=== PATIENT | male | born 1955 | race Caucasian/White ===

== ENCOUNTER → 2016-12-30 | Outpatient (CLI) | payer OTHER ==
[~2016-12-30] MED LIST: ALPR-475 PO; HYDR-3240 PO; IBUP-1222 PO; TAMS0.4C2 PO
== END | disposition home or self-care (01) ==
LOC: RAD 14:45
PROVIDERS: ATTEND Internal Medicine
DX: R91.8 Other nonspecific abnormal finding of lung field (principal); J44.9 Chronic obstructive pulmonary disease, unspecified
CPT/HCPCS: 71250

== ENCOUNTER 2017-01-10 07:47 | Day surgery (SDC) | payer OTHER ==
[~2017-01-10] VITALS: Ht 175.3 cm; Wt 59.6 kg
[2017-01-10 08:34] VITALS: BP 103/74
[2017-01-10] MEDS ORDERED: ACET-1600 PO (08:45)
[2017-01-10] MEDS ORDERED: TRAM50TA2 PO (08:45)
[2017-01-10] MEDS ORDERED: FLUT1AER NAS (08:45)
[2017-01-10] MEDS ORDERED: LACTATED RINGERS 1,000 ML IV SCH (08:47)
[2017-01-10] MEDS ORDERED: LIDOCAINE 1%, 2ML ONE (08:49)
[2017-01-10] MEDS ORDERED: LIDOCAINE 1%, 2ML SQ PRN (09:00)
[2017-01-10] MEDS ORDERED: FENTANYL PF 250 MCG/5ML ONE (09:49)
[2017-01-10] MEDS ORDERED: MIDAZOLAM 1 MG/ML, 2ML ONE (09:49)
[2017-01-10] MEDS ORDERED: PHENYLEPHRINE 10 MG/ML ONE (10:24)
[2017-01-10] MEDS ORDERED: EPHEDRINE 50 MG/ML, 1ML ONE (10:24)
[2017-01-10] MEDS ORDERED: ACETAMINOPHEN 325 MG TABLET PO PRN (11:00)
[2017-01-10] MEDS ORDERED: PROMETHAZINE 25 MG/ML, 1ML IV PRN (11:00)
[2017-01-10] MEDS ORDERED: METOPROLOL 1 MG/ML, 5ML IV PRN (11:00)
[2017-01-10] MEDS ORDERED: HYDROmorphone 1 MG/ML, 1ML IV PRN (11:00)
[2017-01-10] MEDS ORDERED: hydrALAzine 20 MG/ML, 1ML IV PRN (11:00)
[2017-01-10] MEDS ORDERED: OXYcodone 5 MG/5 ML ORAL.SOL UDC PO PRN (11:00)
[2017-01-10] MEDS ORDERED: MEPERIDINE/PF 25MG/0.5ML IVPush PRN (11:00)
[2017-01-10] MEDS ORDERED: MIDAZOLAM 1 MG/ML, 2ML IV PRN (11:00)
[2017-01-10] MEDS ORDERED: ALBUTEROL/IPRATROPIUM 2.5MG/0.5MG, 3 ML NPPB PRN (11:00)
[2017-01-10] MEDS ORDERED: FENTANYL PF 100 MCG/2ML IV PRN (11:00)
[2017-01-10] MEDS ORDERED: GLYCOPYRROLATE 0.2MG/1ML, 5ML ONE (11:22)
[2017-01-10] MEDS ORDERED: NEOSTIGMINE 1 MG/ML, 10ML ONE (11:22)
[2017-01-10] MEDS ORDERED: DEXAMETHASONE 4 MG/ML, 1ML ONE (11:22)
[2017-01-10] MEDS ORDERED: SUCCINYLCHOLINE 20 MG/ML, 10ML ONE (11:22)
[2017-01-10] MEDS ORDERED: ROCURONIUM 10 MG/ML ONE (11:22)
[2017-01-10] MEDS ORDERED: CEFAZOLIN 1,000 MG ONE (11:22)
[2017-01-10] MEDS ORDERED: ONDANSETRON 2MG/ML, 2ML ONE (11:22)
[2017-01-10] MEDS ORDERED: PROPOFOL 10 MG/ML, 20ML ONE (11:22)
== END 2017-01-10 15:20 ==
LOC: OR 07:47
PROVIDERS: ATTEND Internal Medicine
DX: C34.12 Malignant neoplasm of upper lobe, left bronchus or lung (principal); J44.9 Chronic obstructive pulmonary disease, unspecified; F17.200 Nicotine dependence, unspecified, uncomplicated; F41.9 Anxiety disorder, unspecified
CPT/HCPCS: 31623; 31624; 31627; 31629; 71010; 76000; 88112; 88172; 88173; 88177; 88305; 93005; J1100; J2250; J2370; J2405; J2704; J2710; J3010; J3490; J7120; J0690; J0330

== ENCOUNTER → 2017-02-28 | Outpatient (CLI) | payer OTHER ==
[~2017-02-28] MED LIST changes: +ACET-1600 PO; +BUPR150T73 PO; +FLUT1AER NAS; +TRAM50TA2 PO
[2017-02-28 14:58] LABS: HEMATOCRIT 39.6 % (39.2-51.8); HEMOGLOBIN 13.7 g/dL (13.7-18.0); WHITE BLOOD COUNT 6.3 x10^3/uL (3.4-10)
[2017-02-28 15:09] LABS: ASPARTATE AMINO TRANSFERASE 13 U/L (15-37); BLOOD UREA NITROGEN 5 mg/dL (7-18)
== END | disposition home or self-care (01) ==
LOC: STAR 13:36
PROVIDERS: ATTEND Thoracic Surgery (Cardiothoracic Vascular Surgery)
DX: Z01.818 Encounter for other preprocedural examination (principal); C34.12 Malignant neoplasm of upper lobe, left bronchus or lung; F32.9 Major depressive disorder, single episode, unspecified; F41.9 Anxiety disorder, unspecified; F17.200 Nicotine dependence, unspecified, uncomplicated
CPT/HCPCS: 36415; 80053; 85025

== ENCOUNTER 2017-03-04 11:13 | Inpatient (IN) | payer OTHER ==
[~2017-03-04] VITALS: Ht 170.2 cm; Wt 67.1 kg
[~2017-03-04 11:13] MED LIST changes: +CEFAZOLIN 1,000 MG ONE; +DEXAMETHASONE 4 MG/ML, 1ML ONE; +GLYCOPYRROLATE 0.2MG/1ML, 5ML ONE; +NEOSTIGMINE 1 MG/ML, 10ML ONE; +ONDANSETRON 2MG/ML, 2ML ONE; +PHENYLEPHRINE 10 MG/ML ONE; +PROPOFOL 10 MG/ML, 20ML ONE; +ROCURONIUM 10 MG/ML,10ML ONE; +SUCCINYLCHOLINE 20 MG/ML, 10ML ONE
[2017-03-04] MEDS ORDERED: EPINEPHRINE 1 MG/ML, 1ML ONE ×2 (11:21→13:35)
[2017-03-04] MEDS ORDERED: BUPIVACAINE/PF 0.5% ONE ×2 (11:21→13:35)
[2017-03-04] MEDS ORDERED: LACTATED RINGERS 1,000 ML IV SCH ×2 (12:05→15:38)
[2017-03-04 12:06] VITALS: BP 133/84
[2017-03-04] MEDS ORDERED: FLU VACC QS2017-18 (36MOS+) UP/PF 0.5 ML IM-VACC SCH (12:30)
[2017-03-04] MEDS ORDERED: PNEUMOCOCCAL 23 VACCINE IM-VACC SCH (12:30)
[2017-03-04] MEDS ORDERED: MIDAZOLAM 1 MG/ML, 2ML ONE (13:07)
[2017-03-04] MEDS ORDERED: FENTANYL PF 250 MCG/5ML ONE ×2 (13:08→14:52)
[2017-03-04] MEDS ORDERED: HYDROcodone/APAP 7.5-325MG/15ML UDC PO PRN (14:30)
[2017-03-04] MEDS ORDERED: PROMETHAZINE 25 MG/ML, 1ML IV PRN (14:30)
[2017-03-04] MEDS ORDERED: ACETAMINOPHEN 325 MG TABLET PO PRN ×2 (14:30→16:00)
[2017-03-04] MEDS ORDERED: OXYcodone 5 MG/5 ML ORAL.SOL UDC PO PRN (14:30)
[2017-03-04] MEDS ORDERED: ONDANSETRON 2MG/ML, 2ML IVPush PRN ×2 (14:30→16:00)
[2017-03-04] MEDS ORDERED: FENTANYL PF 100 MCG/2ML ONE (15:53)
[2017-03-04] MEDS ORDERED: HYDROmorphone 1 MG/ML, 1ML ONE (15:53)
[2017-03-04] MEDS ORDERED: ACETAMINOPHEN 650 MG/20.3 ML UDC ONE (15:53)
[2017-03-04] MEDS ORDERED: OXYcodone 5 MG/5 ML ORAL.SOL UDC ONE (15:54)
[2017-03-04] MEDS: HYDROmorphone 1 MG/ML, 1ML IV PRN ×3 (15:58→18:01)
[2017-03-04] MEDS ORDERED: ACETAMINOPHEN 650 MG SUPP PR PRN (16:00)
[2017-03-04] MEDS: FAMOTIDINE 20 MG/2 ML IVPush SCH (16:00)
[2017-03-04] MEDS ORDERED: LORazepam 2 MG/ML, 1ML IVPush PRN (16:00)
[2017-03-04] MEDS ORDERED: hydrALAzine 20 MG/ML, 1ML IVPush PRN (16:00)
[2017-03-04] MEDS ORDERED: ENALAPRILAT 1.25 MG/ML, 2ML IVPush PRN (16:00)
[2017-03-04] MEDS ORDERED: DIPHENHYDRAMINE 50 MG/ML, 1ML IVPush PRN (16:00)
[2017-03-04] MEDS ORDERED: DIPHENHYDRAMINE 25 MG CAPSULE PO PRN (16:00)
[2017-03-04] MEDS: FENTANYL PF 100 MCG/2ML IV PRN ×2 (16:30→16:42)
[2017-03-04] MEDS: HYDROcodone/APAP 5/325 TABLET PO PRN ×2 (19:42→21:39)
[2017-03-04 19:57] VITALS: BP 115/72
[2017-03-04] MEDS ORDERED: LORazepam 1MG TABLET ONE (20:40)
[2017-03-04] MEDS: LORazepam 0.5MG TABLET PO PRN (20:41)
[2017-03-04] MEDS ORDERED: TAMSULOSIN 0.4 MG CAP.ER.24H PO ONE (21:00)
[2017-03-04] MEDS: FAMOTIDINE 20 MG TABLET PO SCH (21:39)
[2017-03-04] MEDS: CEFAZOLIN PMX 1GM/50ML 50 ML IVPB SCH (21:39)
[2017-03-04] MEDS: morphine SULFATE 10 MG/ML, 1ML IVPush PRN (23:22)
[2017-03-05 00:48] VITALS: BP 124/72
[2017-03-05] MEDS: morphine SULFATE 10 MG/ML, 1ML IVPush PRN ×4 (04:56→18:34)
[2017-03-05 05:33] LABS: HEMATOCRIT 36.5 % (39.2-51.8); HEMOGLOBIN 12.6 g/dL (13.7-18.0); WHITE BLOOD COUNT 12.5 x10^3/uL (3.4-10)
[2017-03-05 05:37] LABS: BLOOD UREA NITROGEN 8 mg/dL (7-18)
[2017-03-05] MEDS: CEFAZOLIN PMX 1GM/50ML 50 ML IVPB SCH ×3 (06:05→22:00)
[2017-03-05] MEDS: HYDROcodone/APAP 5/325 TABLET PO PRN ×3 (06:10→16:30)
[2017-03-05 07:17] VITALS: BP 108/68
[2017-03-05] MEDS: FAMOTIDINE 20 MG/2 ML IVPush SCH ×2 (09:00→19:06)
[2017-03-05] MEDS: ENOXAPARIN 40 MG/0.4 ML SQ SCH (09:19)
[2017-03-05] MEDS: BUPROPION SR 150 MG TABLET PO SCH (09:19)
[2017-03-05] MEDS: FAMOTIDINE 20 MG TABLET PO SCH ×2 (09:20→19:26)
[2017-03-05] MEDS: TAMSULOSIN 0.4 MG CAP.ER.24H PO SCH (09:20)
[2017-03-05] MEDS: FLUTICASONE/VILANTEROL 100-25MCG/INH INH SCH (09:59)
[2017-03-05] MEDS: LORazepam 0.5MG TABLET PO PRN ×2 (12:05→20:14)
[2017-03-05 14:14] VITALS: BP 110/65
[2017-03-05 19:37] VITALS: BP 132/77
[2017-03-06] MEDS: HYDROcodone/APAP 5/325 TABLET PO PRN ×2 (00:10→08:46)
[2017-03-06 02:28] VITALS: BP 138/77
[2017-03-06 07:43] VITALS: BP 126/74
[2017-03-06] MEDS: ENOXAPARIN 40 MG/0.4 ML SQ SCH (08:46)
[2017-03-06] MEDS: FLUTICASONE/VILANTEROL 100-25MCG/INH INH SCH (08:46)
[2017-03-06] MEDS: FAMOTIDINE 20 MG TABLET PO SCH (08:47)
[2017-03-06] MEDS: FAMOTIDINE 20 MG/2 ML IVPush SCH (08:47)
[2017-03-06] MEDS: BUPROPION SR 150 MG TABLET PO SCH (08:47)
[2017-03-06] MEDS: TAMSULOSIN 0.4 MG CAP.ER.24H PO SCH (08:47)
== END 2017-03-06 11:05 | disposition home or self-care (01) | DRG 165 ==
LOC: ORIP 11:13 → EDSTATUS 13:30 → 3NW 17:26
PROVIDERS: ADMIT Thoracic Surgery (Cardiothoracic Vascular Surgery); ATTEND Thoracic Surgery (Cardiothoracic Vascular Surgery)
PROC: 07B74ZZ Excision of Thorax Lymphatic, Percutaneous Endoscopic Approach (ICD-10-PCS; 2017-03-04)
PROC: 0BTG4ZZ Resection of Left Upper Lung Lobe, Percutaneous Endoscopic Approach (ICD-10-PCS; principal; 2017-03-04 13:30)
DX: C34.12 Malignant neoplasm of upper lobe, left bronchus or lung (principal); Z87.891 Personal history of nicotine dependence
CPT/HCPCS: 36415; 71010; 80048; 85025; 86850; 86900; 86923; 88305; 88309; J0171; J0690; J1100; J1170; J1650; J2250; J2405; J2704; J2710; J3010; J3490; J0330; J2270; J2370; J7120